=== PATIENT | male | born 1970 | race Caucasian/White ===

== ENCOUNTER 2018-08-04 06:06 | Inpatient (IN) | payer BC ==
--- NOTE | 2018-06-08 11:35 | HP ---
DATE OF ADMISSION: 07/07/2018 DATE OF DICTATION: 05/11/2018 REASON FOR ADMISSION: Chronically incarcerated ventral hernia; multiple soft tissue masses of the abdomen (lipomas). BRIEF HISTORY: This is a 48-year-old gentleman with a long-standing history of having a chronically incarcerated ventral hernia. The hernia has gotten significantly larger and now he has pain in the area. He occasionally has severe pain at the level of the hernias. During these episodes, he has no nausea or vomiting. The patient now wishes to have his hernia repaired. He has had no change in bowel habits. He has chronic constipation. He also complains of having multiple soft tissue masses (lipomas) of his abdomen that have gotten significantly larger and sometimes, when he rolls on them, they hurt, and he wishes to have several of them on his abdomen removed. PAST MEDICAL HISTORY: No coronary disease, hypertension or diabetes. PAST SURGICAL HISTORY: Excision of multiple lipomas in the past. ALLERGIES: None. MEDICATIONS: Methylprednisolone 4 mg daily, lovastatin and fenofibrate. SOCIAL HISTORY: The patient does not smoke. He drinks socially. PHYSICAL EXAMINATION: Abdomen: The abdomen is soft, nontender, nondistended. He has multiple soft tissue masses of the abdomen. One is in the left upper quadrant just to the left of the midline overlying a previous scar. The other larger one is to the right of the midline at roughly the same level. He has two just off the axis of the umbilicus at approximately the 9:30 to 10 o'clock position in the anterior clavicular line. He has a large, chronically incarcerated ventral hernia. The actual defects are not noted. There is some mild midline diastasis from xiphoid to umbilicus as well. IMPRESSION/PLAN: Chronically incarcerated ventral hernia: This is a 48-year-old gentleman with a chronically incarcerated ventral hernia that is causing discomfort since it has gotten larger and now he is here for operative repair. The various surgical approaches have been discussed with him. He will be scheduled for an open repair of his chronic hernia with mesh and most probably bilateral component separation at the time of surgery if needed. Also, at the time of this abdominal surgery, the patient will have three of his soft tissue abdominal masses removed. The indications, alternatives and complications of the procedure were discussed and questions were answered. We will plan to obtain written consent the day of surgery. Marcie GOLDBERG CHI/[id number] cc: Homa Peacock MD
[2018-07-30 11:30] VITALS: BMI 30.4
[2018-08-04] MEDS ORDERED: TAMSULOSIN HCL 0.4 MG CAP ONE (06:45)
[2018-08-04] MEDS ORDERED: LIDOCAINE HCL 1% PRESERVATIVE FREE - 30ML VIAL ONE (07:19)
[2018-08-04] MEDS ORDERED: DEXAMETHASONE SOD PHOSPHATE/PF 10 MG/ML SDV ONE (07:24)
[2018-08-04] MEDS ORDERED: MIDAZOLAM HCL 2 MG/2 ML SINGLE DOSE VIAL ONE (07:24)
[2018-08-04] MEDS ORDERED: BUPIVACAINE HCL/PF (5 MG/ML) 30 ML VIAL IJ ONE (07:24)
[2018-08-04] MEDS ORDERED: PROPOFOL 20 ML ONE ×2 (08:03)
[2018-08-04] MEDS ORDERED: SUCCINYLCHOLINE CHLORIDE 200 MG/10 ML VIAL ONE (08:03)
[2018-08-04] MEDS ORDERED: ROCURONIUM BROMIDE 50 MG/5 ML VIAL ONE ×2 (08:03→09:11)
[2018-08-04] MEDS ORDERED: DEXAMETHASONE SOD PHOSPHATE 4 MG/1 ML VIAL ONE ×2 (08:08→09:43)
[2018-08-04] MEDS ORDERED: ONDANSETRON 4 MG/2 ML VIAL ONE ×2 (08:08→09:43)
[2018-08-04] MEDS ORDERED: HYDROmorphone HCL/PF 1 MG/ML AMP ONE (08:19)
[2018-08-04] MEDS ORDERED: ceFAZolin SODIUM 1 GM VIAL ONE (08:19)
[2018-08-04] MEDS ORDERED: NEOSTIGMINE METHYLSULFATE 0.5 MG/ML - 10 ML MDV ONE (09:43)
[2018-08-04] MEDS ORDERED: GLYCOPYRROLATE 0.2 MG/1 ML VIAL ONE (09:43)
[2018-08-04] MEDS ORDERED: oxyCODONE HCL 5 MG TABLET PO PRN ×2 (11:05)
[2018-08-04] MEDS ORDERED: ONDANSETRON 4 MG/2 ML VIAL IVPUSH PRN ×2 (11:05→11:52)
[2018-08-04] MEDS ORDERED: LACTATED RINGERS SOLUTION 1,000 ML IV SCH (11:15)
[2018-08-04] MEDS ORDERED: ACETAMINOPHEN 325 MG TABLET (FP) PO SCH (11:15)
--- NOTE | 2018-08-04 11:23 | OP ---
DATE OF OPERATION: 08/04/2018 PREOPERATIVE DIAGNOSES: Chronically incarcerated complex ventral hernia, multiple abdominal lipomas. POSTOPERATIVE DIAGNOSES: Chronically incarcerated complex ventral hernia, multiple abdominal lipomas. PROCEDURE: Open bilateral component separation, repair of complex incarcerated ventral hernia with mesh, excision of 3 abdominal lipomas with a total of 6-cm intermediate wound closure. SURGEON: Jean Polo MD TEXTILE MACHINERY SALES REPRESENTATIVE: Ranjan Macias MD ANESTHESIA: DANIS Quiroz (general). INDICATION FOR PROCEDURE: This is a 48-year-old gentleman who has a chronically incarcerated ventral hernia. The hernia is causing him more discomfort. He now wished to have this repaired. It has also gotten larger. Patient also states he has multiple soft tissue masses on his abdomen (lipomas). He wishes to have 3 of these removed since they have gotten significantly larger and cause him discomfort. Patient identified and appropriately positioned on the operating room table. After placement of general anesthesia the abdomen was prepped and draped in the usual sterile fashion with ChloraPrep. A midline incision was made, deepened through the subcutaneous tissue. The hernia dissected free from the subcutaneous tissue down to the level of the fascia. It was circumferentially isolated at the fascial level and the hernia due to its incarcerated nature the sac was opened and contained incarcerated omentum. The omentum was serially clamped, divided and tied with 3-0 Vicryl suture. The sac reapproximated with a running 3-0 Maxon suture. Next the posterior rectus sheath was entered by dividing the anterior rectus sheath on the patient's right side, the muscle subsequently split and the posterior rectus space entered from above. The space was subsequently developed out laterally toward the perforating vessels. At that level just medial to the perforating vessels the transversus fascia was scored and sharply. This allowed the myofascial separation on the patient's right side. This was taken approximately 5 inches above and below the actual defect. Attention on the left side was done in a similar fashion. The rectus anterior sheath was divided and the muscle identified, the muscle split and the posterior sheath identified and from the musculature with blunt dissection going laterally. Just medial to the perforating vessels the fascia of the transversus was scored, divided sharply and taken approximately 5 inches above and below the defect. The myofascial separation on the right was done very similarly to that on the left side. Next the defect measured and a large 15 x 15 piece of ProGrip was used along with a 10 x 12 piece of VISHAL Bio. The 2 pieces of mesh were sewn together in a hybrid fashion. The VISHAL Bio was placed on the transversus side and the ProGrip with the speech language pathologist prn up directly behind the muscle of the rectus. This was placed into the posterior rectus space and then fanned out in all directions and then anchored with interrupted AbsorbaTack sutures. The anterior sheath was then reapproximated with a running zero PDS suture. The subcutaneous space irrigated. Prior to closure of the anterior fascia the mesh was seated with Valsalva maneuvers. The subcutaneous space irrigated. The midline closed with mel. The 2-cm incisions were made overlying the 3 abdominal masses marked preoperatively. They were deepened in the subcutaneous tissue and the lipomas were sharply excised en bloc and intact. They were labeled number 1 left superior, number 2 right-sided lipoma and number 3 left inferior. Hemostasis was achieved with cautery as needed. All skin closed with mel as well. At the conclusion of this case all incisions were covered with Dermabond followed by 4 x 4's and a pressure dressing. Sponge and instrument counts were correct. ATTESTATION: A brief operative note hand written on the preprinted form. [facility] will be queried prior to giving narcotics. Marcie GOLDBERG [id number] cc: Homa Peacock MD
[2018-08-04] MEDS ORDERED: morphine SULFATE 4 MG/ML VIAL IVPB PRN (11:52)
[2018-08-04] MEDS ORDERED: SODIUM CHLORIDE 1,000 ML IV SCH (12:00)
[2018-08-04] MEDS: ACETAMINOPHEN 325 MG TABLET (FP) PO SCH ×2 (14:04→20:06)
[2018-08-04] MEDS ORDERED: PATIENT'S OWN MEDICATION (NON-FORMULARY) (Simvastatin [Simvastatin] 20 MG) PO SCH (22:00)
[2018-08-05] MEDS: ACETAMINOPHEN 325 MG TABLET (FP) PO SCH ×2 (03:16→08:20)
--- NOTE | 2018-08-05 09:53 | PN ---
Progress Note (short form) - Note Progress Note: Anesthesia Post op/Pain Pt seen and examined S:Alert and awake c/o mild pain O: Vital Signs Temperature 98.4 F 08/05/18 05:00 Pulse Rate 84 08/05/18 05:00 Respiratory Rate 18 08/05/18 08:50 Blood Pressure 109/57 L 08/05/18 05:00 O2 Sat by Pulse Oximetry (%) 97 08/05/18 08:50 A/P: s/p b/l component seperation of complex ventral hernia repair with mesh Doing well post op No apparent anesthesia related complications Pain control Advised to take pain meds as needed Continue current care Hollis Davis MD
[2018-08-05] MEDS ORDERED: PANTOPRAZOLE SODIUM 40 MG VIAL IVPUSH SCH (10:00)
[2018-08-05] MEDS ORDERED: ENOXAPARIN NA (PORCINE) 40 MG/0.4 ML DISP.SYRIN SQ SCH (10:00)
[2018-08-05 10:16] VITALS: BP 124/73; PULSE 76; TEMP 98.5
--- NOTE | 2018-08-05 12:53 | DS ---
DATE OF ADMISSION: 08/04/2018 DATE OF DISCHARGE: 08/05/2018 ADMITTING DIAGNOSIS: Ventral hernia. DISCHARGE DIAGNOSES: Ventral hernia. BRIEF HISTORY: This 48-year-old male presented to [facility] for surgical management of a complex ventral hernia. He underwent component-separation repair on August 04, without complication, utilizing mesh. Please reference Dr. Jean Polo's operative note for further details. Postoperatively, he did well. He is being discharged home today, August 05, tolerating diet, ambulating, and voiding. He will go home with a new prescription for Percocet which he will take as needed for pain. He will continue his usual home medications of simvastatin. He is okay to shower, okay to drive. He will not lift anything more than 20 pounds. He will follow with Dr. Polo in approximately 2 weeks for his postoperative check. DO TEDDY LEAL/[id number]
--- NOTE | 2018-08-05 16:02 | PATH ---
Surgical Pathology Report Patient Name: RUBY CHAPIN Med. Rec. #: [id number] /Age/Gender: 1970 (Age: 48) / M Account: [id number] Location: [facility] Taken: 08/04/2018 Received: 08/04/2018 Reported: 08/05/2018 Physicians: Jean Polo Specimen(s) Received A: PORTION OF HERNIA SAC AND OMENTUM B: LIPOMA 1, LEFT SUPERIOR ABDOMEN C: LIPOMA 2, RIGHT ABDOMEN D: LIPOMA 3, LEFT INFERIOR ABDOMEN Clinical History Ventral hernia, soft tissue masses on abdomen Final Diagnosis A. PORTION OF HERNIA SAC WITH OMENTUM, EXCISION: HERNIA SAC AND ADIPOSE TISSUE. B. LIPOMA 1, LEFT SUPERIOR ABDOMEN, EXCISION: LIPOMA. C. LIPOMA, 2, RIGHT ABDOMEN, EXCISION: LIPOMA. D. LIPOMA 3, LEFT INFERIOR ABDOMEN, EXCISION: LIPOMA. Electronically Signed Kaila Grier M.D. Gross Description A. Received in formalin labeled "hernia sac with omentum," is a 3.5 x 3.5 x 1.8 cm raymond-ahn portion of fibromembranous tissue containing yellow, lobulated adipose tissue, consistent with a hernia sac. A health and safety representative section is submitted in one cassette. B. Received in formalin labeled "lipoma 1, left superior abdomen," is a 5.0 x 3.8 x 2.2 cm portion of yellow, lobulated adipose tissue. Sectioning reveals homogeneous yellow, smooth fat. No areas of hemorrhage or necrosis are identified. [employer]er sections are submitted in 2 cassettes. C. Received in formalin labeled "lipoma 2 right abdomen," is a 4.0 x 3.8 x 2.0 cm portion of yellow, lobulated adipose tissue. Sectioning reveals homogeneous yellow, smooth fat. No areas of hemorrhage or necrosis are identified. [employer] Installer sections are submitted in 2 cassettes. D. Received in formalin labeled "lipoma 3, left inferior abdomen," is a 5.0 x 3.0 x 2.1 cm portion of yellow, lobulated adipose tissue. Sectioning reveals homogeneous yellow, smooth fat. No areas of hemorrhage or necrosis are identified. [employer] Installer sections are submitted in 2 cassettes. DL/08/04/2018 saudi/08/04/2018
== END 2018-08-05 12:30 | disposition home or self-care (01) | DRG 355 ==
LOC: FASU 06:06 → FM/S 12:20
PROVIDERS: ADMIT Surgery; ATTEND Surgery
PROC: 0WUF0JZ Supplement Abdominal Wall with Synthetic Substitute, Open Approach (ICD-10-PCS; principal; 2018-08-04 08:26)
PROC: 0JB80ZZ Excision of Abdomen Subcutaneous Tissue and Fascia, Open Approach (ICD-10-PCS; 2018-08-04 08:26)
DX: K43.6 Other and unspecified ventral hernia with obstruction, without gangrene (principal); D17.79 Benign lipomatous neoplasm of other sites
CPT/HCPCS: 88304-TC; 94760; J7030